=== PATIENT | female | born 1980 | race Caucasian/White ===

== ENCOUNTER 2021-12-28 19:03 | Emergency (ER) | payer OTHER ==
[~2021-12-28] VITALS: Ht 170.1 cm; Wt 77.1 kg
[~2021-12-28 19:03] MED LIST: CIPROFLOXACIN500 MG PO; FLOMAX0.4 MG PO; HYDROCODONE BIT1 T11 PO; Lovenox40 MG/0.4 SC; Medrol Dosepak4 MG PO; PERCOCET 325 MG1 TA6 PO; PRENATAL1 TA1 PO; [UNRECOGNIZED DRUG - CODE] IJ
[2021-12-28 20:06] LABS: BILIRUBIN Negative (Negative); BLOOD 3+ (Negative); CLARITY Cloudy (Clear); COLOR Yellow (Yellow); GLUCOSE Negative (Negative); KETONE 1+ (Negative); LEUKO ESTERASE 1+ (Negative); NITRITE Negative (Negative); SPECIFIC GRAVITY 1.025 (1.001-1.030)
[2021-12-28 20:18] LABS: BACTERIA 2+; EPITHELIAL CELLS 16-20; RBC 41-50 rbc/hpf (0-2)
[2021-12-28 21:20] LABS: BASO % 0.3 % (0.0-1.0); EOS % 0.1 % (1.0-4.0); LYMPH # 0.8 10*3/uL (1.3-4.4); LYMPH % 11.2 % (27.0-41.0); MEAN CELL VOLUME 88.2 fl (81.0-99.0); MEAN CORPUSCULAR HGB 29.9 pg (27.0-31.0); MEAN CORPUSCULAR HGB CONC 33.9 g/dl (33.0-37.0); MEAN PLATELET VOLUME 9.6 fl (9.6-12.3); MONO # 0.3 10*3/uL (0.1-1.0); MONO % 3.9 % (3.0-9.0); NEUT # 6.1 10*3/uL (2.3-7.9); NEUT % 84.1 % (47.0-73.0); PLATELET COUNT AUTOMATED 210 10*3/uL (130-400); RED BLOOD COUNT 4.08 10*6/uL (4.10-5.10); RED CELL DISTRI WIDTH 12.9 % (0-14.5); WHITE BLOOD COUNT 7.2 10*3/uL (4.8-10.8)
[2021-12-28 21:39] LABS: ALKALINE PHOSPHATASE 63 U/L (45-117); BUN 12 mg/dl (7-24); CHLORIDE 109 mmol/L (98-107); CREATININE 0.93 mg/dL (0.55-1.02); SGOT/AST 16 IU/L (3-35); SGPT/ALT 27 U/L (12-78); SODIUM 139 mmol/L (136-145); TOTAL PROTEIN 7.1 gm/dL (6.4-8.2)
[2021-12-28] MEDS ORDERED: ONDANSETRON4 MG SL (22:11)
[2021-12-28] MEDS ORDERED: CIPROFLOXACIN500 M4 PO (22:11)
[2021-12-28] MEDS ORDERED: HYDROCODONE-AC1 EAC1 PO (22:11)
== END 2021-12-28 22:16 | disposition home or self-care (01) ==
LOC: ED 19:03
PROVIDERS: Emergency Medicine
DX: N13.2 Hydronephrosis with renal and ureteral calculous obstruction (principal); F17.200 Nicotine dependence, unspecified, uncomplicated; Z87.442 Personal history of urinary calculi; Z98.890 Other specified postprocedural states